=== PATIENT | female | born 2005 | race Caucasian/White ===

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

== ENCOUNTER 2025-09-11 | Emergency (ER) | payer OTHER ==
[~2025-09-11] VITALS: Ht 157.5 cm; Wt 46.8 kg
[2025-09-11 00:14] VITALS: BP 128/86; PULSE 89; RESP 16; TEMP 98.1; O2SAT 100
[2025-09-11] MEDS: ACETAMINOPHEN 500 MG TABLET PO ONE (02:26)
[2025-09-11] MEDS: LIDOCAINE 5% TRANSDERMAL PATCH TD ONE (02:26)
[2025-09-11] MEDS: IBUPROFEN 400 MG TABLET PO ONE (02:26)
== END 2025-09-11 03:12 | disposition home or self-care (01) ==
LOC: EMS 00:02
DX: M54.41 Lumbago with sciatica, right side (principal); M54.42 Lumbago with sciatica, left side; R00.2 Palpitations; Z88.0 Allergy status to penicillin
CPT/HCPCS: 99284; Z7502; Z7610